=== PATIENT | female | born 1990 | race Caucasian/White ===

== ENCOUNTER 2022-08-21 09:23 | Emergency (ER) | payer MEDICAID, SELFPAY ==
[2022-08-21] VITALS (13 sets, daily range): BP systolic 114–139; BP diastolic 75–92; PULSE 82–100; RESP 22; TEMP 36.2; O2SAT 98–100
--- NOTE | 2022-08-21 09:43 | ED.CHESTPAIN ---
HPI - Chest Pain General Time Seen by Provider: 09:43 Date Seen: 08/21/22 Chief Complaint: Chest Pain Stated Complaint: chest pain and vertigo Time Seen by Provider: 08/21/22 09:41 Source: patient and RN notes reviewed Mode of arrival: ambulatory Limitations: no limitations History of Present Illness HPI narrative: Patient is a 32-year-old female coming in with symptoms of feeling unsteady or wooziness in her head/balance, some substernal chest discomfort. Patient has a history what sounds to be benign positional vertigo with vertiginous symptoms happening with position changes. Last night she notes when she went to bed she thought she had some heartburn, had a burning sensation. When she woke up she went to work, got work about 630 in noted some substernal chest discomfort, it is not sharp, has been there since at the 6:30 a.m., it is currently 10 in the morning right now. She feels nauseated, feels a sense of imbalance. She notes driving to work she was telling her fiance that it just felt like her left ear needed to pop, possible hearing changes. Not currently bothering her at this time, no tinnitus noted. She also notes that she has had some cramps in her right calf. States she has had a history of blood clot in that leg, unknown if superficial or deep but not on any chronic anticoagulants. She is not on any contraception. They do use barrier protection, does not believe she is but understands there is always a chance. MD complaint: chest discomfort Onset (ago): hour(s) Timing of current episode: constant Prior episodes: No Pain location: substernal Related Data On Oral Contraceptives: No Home Medications Medication Instructions Recorded Confirmed No Known Home Medications 08/21/22 08/21/22 Allergies Allergy/AdvReac Type Severity Reaction Status Date / Time No Known Drug Allergies Allergy Verified 08/21/22 09:32 Review of Systems Status of ROS Reports: 6 or more systems reviewed and unremarkable except as noted in History and below Exam Const Vital Signs, click to edit/add: Vital Signs - 24 hr 08/21/22 09:32 08/21/22 09:40 08/21/22 10:33 Temperature 97.2 F L Pulse Rate 89 Pulse Rate [Right Pulse Oximeter] 100 Respiratory Rate 22 Blood Pressure 116/78 Blood Pressure [Right Upper Arm] 139/92 H Pulse Oximetry 98 100 98 Oxygen Delivery Method Room Air 08/21/22 10:34 Temperature Pulse Rate 93 Pulse Rate [Right Pulse Oximeter] Respiratory Rate Blood Pressure Blood Pressure [Right Upper Arm] Pulse Oximetry 99 Oxygen Delivery Method Documenting provider has reviewed patient's vital signs: yes Common normals: no apparent distress, average body habitus, oriented x3, no limitations, healthy appearing and alert General appearance: cooperative, comfortable, well kempt, well developed and anxious [facility] Common normals: normocephalic, head/scalp atraumatic, hearing grossly normal bilaterally, external ears normal, EAC's normal, TM's normal bilaterally, external nose normal, moist oral mucous membranes, oropharynx normal, dentition normal and gingiva normal Head and scalp: normocephalic and atraumatic Face and sinus: normal facial exam Nose: external nose normal External ear: external ears normal External auditory canal: EAC's normal Tympanic membrane: TM's normal bilaterally Eye Common normals: PERRL, EOMs intact bilaterally, conjunctivae normal and no scleral icterus Conjunctiva: conjunctiva(e) normal Pupil: PERRL Neck & C-Spine Common normals: full ROM, no lymphadenopathy, supple, no meningeal signs, no JVD and thyroid normal Thyroid: thyroid normal Lymph Lymphatic: no lymphadenopathy noted Chest Common normals: inspection of chest normal and palpation of chest normal Resp Common normals: normal respiratory effort, no retractions, no use of accessory muscles and clear to auscultation bilaterally Effort & inspection: able to speak in complete sentences Auscultation: clear to auscultation bilaterally Cardio Common normals: no JVD, regular rate, regular rhythm, S1 normal heart sound, S2 normal heart sound, no gallops and no clicks Rate: regular rate Rhythm: regular rhythm Heart sounds: S1 normal and S2 normal Other: Soft, 1 to 2/6 systolic murmur heard both upper sternal borders. GI Common normals: Normal to inspection, nondistended, normoactive bowel sounds present, soft to palpation, non-tender, no hepatosplenomegaly and no masses Palpation: soft and no hepatosplenomegaly Extremity Common normals: no calf tenderness and no pedal edema Neuro Rosalind Coma Scale: document GCS findings Rosalind coma scale eye opening: Spontaneous (4) [place] coma scale verbal response: Orientated (5) [place] coma scale motor response: Obey commands (6) Rosalind coma scale total score: 15 Common normals: oriented x3, CN's II-XII intact bilaterally, moves all extremities, no focal motor deficits, no sensory deficits noted and gait normal Sensorium/orientation: alert Meningeal signs: no meningeal signs Speech: speech normal Psych Appearance: well kempt Course Course Hospital Course: Will give patient IV Ativan in a L of normal saline. Ativan both for nausea and her sense of imbalance. Will obtain troponin, have seen her baseline EKG which is not suggestive of any acute ischemia. Will see where her D-dimer is, obtained portable chest x-ray and full complement of labs. The imbalance feeling certainly could be a labyrinthitis/vestibulitis given her symptoms seem to be coming from possibly the left with changes of hearing earlier this morning. We will see if the Ativan helps. Will get a full complement of labs including electrolytes. She is having chest discomfort, need to consider thromboembolic disease, cardiac manifestations such as myocarditis, ischemia. Reevaluation(s) Time of Reevaluation #1: 11:37 Reevaluation #1: Patient reported to nursing staff that she just found out she was exposed to COVID last week. We will add on a COVID test. Waiting for other labs to come back and then I will be back in with her. Time of Reevaluation #2: 12:45 Reevaluation #2: Reviewed with patient that we were just awaiting the troponin results from lab. She is aware she is COVID positive. This very likely explains her somatic symptoms. We reviewed that her D-dimer is normal, chest x-ray without any evidence COVID pneumonia. There is no evidence of hypoxia, if her troponin is normal, discharge to home for conservative management. Vital Signs Vital signs: Initial Vital Signs Temperature 97.2 F L 08/21/22 09:32 Temperature Source Temporal Artery Scan 08/21/22 09:32 Pulse Rate 100 08/21/22 09:32 Respiratory Rate 22 08/21/22 09:32 Blood Pressure 139/92 H 08/21/22 09:32 Blood Pressure Mean 107 H 08/21/22 09:32 Blood Pressure Position Sitting 08/21/22 09:32 Pulse Oximetry 98 08/21/22 09:32 Oxygen Delivery Method Room Air 08/21/22 09:32 Vital Signs Temperature 97.2 F L 08/21/22 09:32 Pulse Rate 100 08/21/22 09:32 Respiratory Rate 22 08/21/22 09:32 Blood Pressure 139/92 H 08/21/22 09:32 Pulse Oximetry 98 08/21/22 09:32 Oxygen Delivery Method Room Air 08/21/22 09:32 Temperature 97.2 F L 08/21/22 09:32 Pulse Rate 93 08/21/22 10:34 Respiratory Rate 22 08/21/22 09:32 Blood Pressure 116/78 08/21/22 10:33 Pulse Oximetry 99 08/21/22 10:34 Oxygen Delivery Method Room Air 08/21/22 09:32 MDM - Chest Pain Lab Data Attestation: I reviewed the patient's lab results. Labs: Lab Results 08/21/22 08/21/22 Range/Units 10:25 11:37 WBC 4.40 L (4.50-11.00) K/uL RBC 4.44 (4.00-5.20) m/uL Hgb 13.0 (12.0-16.0) gm/dL Hct 39.6 (33.0-51.0) % MCV 89 (80-100) fL MCH 29 (26-34) pg MCHC 33 (32-36) gm/dL RDW Coeff of Mirza 13.2 (11.5-15.5) % Plt Count 308 (140-440) K/uL Neut % (Auto) 65.2 (42.0-72.0) % Lymph % (Auto) 23.2 (20-44) % [place] % (Auto) 10.0 (0.0-11.0) % Eos % (Auto) 0.7 (0.0-7.0) % Baso % (Auto) 0.9 (0.0-3.0) % Neut # (Auto) 2.90 (1.7-7.0) K/uL Lymph # (Auto) 1.00 (0.90-2.90) K/uL [place] # (Auto) 0.40 (0.00-0.90) K/UL Eos # (Auto) 0.00 (0.00-0.50) K/uL Baso # (Auto) 0.00 (0.00-0.30) K/uL Abs Immat Gran (auto) 0.00 (0.00-0.30) K/uL Imm/Tot Granulo (auto) 0.0 % D-Dimer Quant (PE/DVT) < 0.27 (0.00-0.50) ug/ml Sodium 136 (135-149) mmol/L Potassium 3.4 L (3.6-5.1) mmol/L Chloride 101 (96-114) mmol/L Carbon Dioxide 26 (20-32) mmol/L BUN 14 (5-24) mg/dL Creatinine 0.6 (0.5-1.5) mg/dL Estimated GFR 123 ml/min Glucose 100 (60-115) mg/dL Lactate 1.1 (0.5-1.9) mmol/L Calcium 9.6 (8.4-10.6) mg/dL Magnesium 2.1 (1.5-2.6) mg/dL Total Bilirubin 0.6 (0.1-1.5) mg/dL Direct Bilirubin 0.0 (0.0-0.5) mg/dL AST 26 (12-35) U/L ALT 24 (4-35) U/L Alkaline Phosphatase 57 (40-150) U/L Troponin I < 0.01 L (0.01-0.04) ng/mL C-Reactive Protein 0.6 (0.5-1.0) mg/dL NT-Pro-B Natriuret Pep 102 pg/mL Total Protein 8.0 (6.0-8.3) g/dL Albumin 4.7 (3.3-5.0) g/dL Lipase 58 (23-300) U/L HCG, Qual Negative (Negative) SARS-CoV-2 (PCR) POSITIVE SARS-CoV-2 A (Negative) Imaging Data Chest x-ray: Attestation: I have reviewed the pertinent imaging results. My impression: I see no acute cardiopulmonary pathology on my preliminary review. Radiologist's impression: Patient: DANA STONE Facility:?[facility] Patient ID:?[id number] Site Patient ID:?[id number]. Site :?[id number] Study:?XRay Chest PORTABLE-08/21/2022 10:21:48 AM Ordering Physician:?Kandy Rakel Final Report: INDICATION: Chest discomfort. TECHNIQUE: AP portable seated chest x-ray. FINDINGS: Clear lungs. Normal heart size and pulmonary vascularity. Normal included skeleton. IMPRESSION: Negative chest. Dictated by Chad Mari MD @ 08/21/2022 10:26:10 AM (Electronic Signature) ECG Data Attestation: I personally reviewed and interpreted this ECG as follows: (Normal sinus rhythm with sinus arrhythmia, 70 beats per minute. No definitive ischemia. QT corrected 433 milliseconds.) ECG interpretation date: 08/21/22 ECG interpretation time: 09:45 Critical Care Time Critical Care Time Critical Care Time: No Discharge Plan Discharge Clinical Impression: COVID-19, Unsteady gait, Chest discomfort Patient Disposition: Home, Self-Care Condition: Stable Instructions: COVID-19 (Coronavirus Disease 2019) (ED), COVID-19: Slow the Coronavirus Spread (ED) Additional Instructions: Your symptoms are very likely all stemming from an acute COVID infection. Need to isolate per CDC guidelines. I do recommend consideration of an 81 mg aspirin daily anywhere from 4-6 weeks to help prevent thrombotic events stemming from COVID-19 infection. If you have any concerns about worsening, a specific symptom that is concerning to, increased difficulty breathing or shortness of breath, do recommend re-evaluation. Otherwise, can use [id number] medications for symptom management. You may develop fevers, respiratory symptoms with this. Some people will actually have nausea vomiting and diarrhea with COVID. Activity Level: Activity as Tolerated Discharge Diet: Regular Prescriptions: No Action No Known Home Medications Stand Alone Forms: [employer] Info Instructions
--- NOTE | 2022-08-21 09:58 | CRLHL7_ITS ---
For Patients: As a result of the Century Cures Act, medical imaging exams and procedure reports are released immediately into your electronic medical record. You may view this report before your referring provider. If you have questions, please contact your health care provider. INDICATION: Chest discomfort. TECHNIQUE: AP portable seated chest x-ray. FINDINGS: Clear lungs. Normal heart size and pulmonary vascularity. Normal included skeleton. IMPRESSION: Negative chest. Dictated by Chad Mari MD @ 08/21/2022 10:26:10 AM (Electronically Signed)
[2022-08-21] MEDS: 0.9 % SODIUM CHLORIDE 1000 ml 1,000 ML 500 ML IV (10:21)
[2022-08-21] MEDS: LORazepam 2 MG/ML inj 0.5 MG IVP (10:22)
[2022-08-21 10:33] LABS: Lactate* 1.1 mmol/L (0.5-1.9)
[2022-08-21 10:37] LABS: Basophils Percent Auto 0.9 % (0.0-3.0); Eosinophils Percent Auto 0.7 % (0.0-7.0); Hematocrit 39.6 % (33.0-51.0); Lymphocytes Percent Auto 23.2 % (20-44); Mean Corpuscular HGB Conc 33 gm/dL (32-36); Mean Corpuscular Hemoglobin 29 pg (26-34); Mean Corpuscular Volume 89 fL (80-100); Neutrophils Percent Auto 65.2 % (42.0-72.0); Platelet Count* 308 K/uL (140-440); RDW Coefficient of Variation % 13.2 % (11.5-15.5); Red Blood Count 4.44 m/uL (4.00-5.20)
[2022-08-21 10:49] LABS: Slide Review Reflex No
[2022-08-21 10:52] LABS: Albumin* 4.7 g/dL (3.3-5.0); Chloride* 101 mmol/L (96-114)
[2022-08-21 10:53] LABS: Potassium* 3.4 mmol/L (3.6-5.1); Sodium* 136 mmol/L (135-149)
[2022-08-21 10:54] LABS: Lipase* 58 U/L (23-300)
[2022-08-21 10:55] LABS: Creatinine* 0.6 mg/dL (0.5-1.5); Estimated Glomerular Filt Rate 123 ml/min; Magnesium* 2.1 mg/dL (1.5-2.6)
[2022-08-21 10:56] LABS: Alanine Aminotransferase* 24 U/L (4-35); Alkaline Phosphatase* 57 U/L (40-150); Aspartate Amino Transferase* 26 U/L (12-35); Bilirubin Total* 0.6 mg/dL (0.1-1.5); Blood Urea Nitrogen* 14 mg/dL (5-24); Calcium* 9.6 mg/dL (8.4-10.6); Carbon Dioxide* 26 mmol/L (20-32); Glucose* 100 mg/dL (60-115)
[2022-08-21 10:59] LABS: C Reactive Protein* 0.6 mg/dL (0.5-1.0)
[2022-08-21 11:08] LABS: D Dimer Quantitative* < 0.27 ug/ml (0.00-0.50)
[2022-08-21 12:08] LABS: HCG Qualitative Serum* Negative (Negative)
[2022-08-21 12:20] LABS: SARS PCR* POSITIVE SARS-CoV-2 (Negative)
[2022-08-21 13:01] LABS: Troponin I* < 0.01 ng/mL (0.01-0.04)
[2022-08-21 13:02] LABS: NT Pro B Type NatriureticPept* 102 pg/mL
== END 2022-08-21 13:26 | disposition home or self-care (01) ==
PROVIDERS: Emergency Provider Family Medicine
DX: R07.9 Chest pain, unspecified (principal); U07.1 COVID-19; R26.81 Unsteadiness on feet
CPT/HCPCS: 36415; 71045; 80053; 82248; 83605; 83690; 83735; 83880; 84484; 84703; 85025; 85379; 86140; 87635; 93005; 94761; 96374; 99284; 99285; J2060; J7030

== ENCOUNTER 2023-09-12 14:16 | Emergency (ER) | payer MEDICAID, SELFPAY ==
[2023-09-12 14:20] VITALS: BP 146/91; PULSE 83; RESP 18; TEMP 36.9; O2SAT 99; BMI 31.1
--- NOTE | 2023-09-12 14:36 | ED.GENADULT ---
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 She was hospitalized at [facility]. She had an ex attended spectrum beta lactamase bacteria. She finishes the [place] min about 5 days. She has had some looser stools and currently having her period. She sent a C diff toxin in today and that has not resulted yet. She does not feel markedly weak but today presents with some dizziness a little bit of fogginess and wanted to be assessed. Patient denies chest pain denies breathing problem, denies leg swelling or edema or bleeding or clotting issues. She is afebrile today. She has no further kidney or flank pain that was on the left prior to her treatment with ertapenem. Related Data Home Medications ?Medication ?Instructions ?Recorded ?Confirmed No Known Home Medications 08/21/22 08/21/22 Allergies Allergy/AdvReac Type Severity Reaction Status Date / Time No Known Drug Allergies Allergy Verified 08/21/22 09:32 Review of Systems Status of ROS: Reports: 6 or more systems reviewed and unremarkable except as noted in History and below [facility] Social History Second hand tobacco smoke exposure: No How often do you have a drink containing alcohol: never How often do you have six or more drinks on one occasion: Never AUDIT-C Alcohol total score: 0 Non-prescribed substance use: denies use service: No Exam Narrative: Exam Narrative: Objective: Patient's vital signs are slightly elevated terms of systolic and diastolic pressure 146/91, afebrile, O2 sat 99% on room air pulses regular respiratory rate normal HEENT is unremarkable other than dry mucous membranes in the mouth neck is supple chest is clear equal breath sounds no palpable CVA tenderness pulses regular Denies abdominal pain Extremities are no edema Neurologic grossly nonfocal. Const: Vital Signs, click to edit/add: Vital Signs - 24 hr 09/12/23 14:20 Temperature 98.5 F Pulse Rate [Right Pulse Oximeter] 83 Respiratory Rate 18 Blood Pressure [Le ft Upper Arm] 146/91 H Pulse Oximetry 99 Oxygen Delivery Me thod Room Air Course Vital Signs Vital signs: Initial Vital Signs Temperature 98.5 F 09/12/23 14:20 Temperature Source Temporal Artery Scan 09/12/23 14:20 Pulse Rate 83 09/12/23 14:20 Pulse Rhythm Regular 09/12/23 14:20 Pulse Strength 3+ Normal 09/12/23 14:20 Respiratory Rate 18 09/12/23 14:20 Blood Pressure 146/91 H 09/12/23 14:20 Blood Pressure Mean 109 H 09/12/23 14:20 Blood Pressure Position Sitting 09/12/23 14:20 Pulse Oximetry 99 09/12/23 14:20 Oxygen Delivery Method Room Air 09/12/23 14:20 Vital Signs Temperature 98.5 F 09/12/23 14:20 Pulse Rate 83 09/12/23 14:20 Respiratory Rate 18 09/12/23 14:20 Blood Pressure 146/91 H 09/12/23 14:20 Pulse Oximetry 99 09/12/23 14:20 Oxygen Delivery Method Room Air 09/12/23 14:20 Temperature 98.5 F 09/12/23 14:20 Pulse Rate 83 09/12/23 14:20 Respiratory Rate 18 09/12/23 14:20 Blood Pressure 146/91 H 09/12/23 14:20 Pulse Oximetry 99 09/12/23 14:20 Oxygen Delivery Method Room Air 09/12/23 14:20 Medications Administered Medications: Discontinued Medications Generic Name Dose Route Start Last Admin Trade Name Freq PRN Reason Stop Dose Admin Sodium Chloride 1,000 mls @ 6,000 mls/hr 09/12/23 14:45 09/12/23 15:35 0.9 % Sodium Chloride 1000 Ml IV 09/12/23 14:54 Infused .Q10M EVITA Infusion Medical Decision Making MDM Narrative Medical decision making narrative: 33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 C Diff toxin pending. At this point she appears to be mildly dehydrated I think it be reasonable to give her IV fluid 1 L, check a heme 4 basic 7. Would also check a COVID/influenza/RSV test. If her tests are reassuring if she does feels a little better I think we can discharge her to home. She will complete her ertapenem, weight on her C diff report. Follow-up as planned. Addendum 3:08 p.m.: The patient's CBC and Chem profile are unremarkable. I think she would be safe to go home after IV fluid. Await her C diff report. Return as needed. The patient has normal labs, hers COVID test is still pending but she can go home after she gets her IV fluid. Recheck with regular doctor as described above . Lab Data Labs: Lab Results 09/12/23 Range/Units 14:45 WBC 5.92 (4.50-11.00) K/uL RBC 4.06 (4.00-5.20) m/uL Hgb 12.0 (12.0-16.0) gm/dL Hct 36.7 (33.0-51.0) % MCV 90 (80-100) fL MCH 30 (26-34) pg MCHC 33 (32-36) gm/dL RDW Coeff of Mirza 12.5 (11.5-15.5) % Plt Count 349 (140-440) K/uL Neut % (Auto) 67.4 (42.0-72.0) % Lymph % (Auto) 23.0 (20-44) % [place] % (Auto) 6.4 (0.0-11.0) % Eos % (Auto) 2.2 (0.0-7.0) % Baso % (Auto) 0.8 (0.0-3.0) % Neut # (Auto) 3.99 (1.7-7.0) K/uL Lymph # (Auto) 1.36 (0.90-2.90) K/uL [place] # (Auto) 0.40 (0.00-0.90) K/UL Eos # (Auto) 0.13 (0.00-0.50) K/uL Baso # (Auto) 0.05 (0.00-0.30) K/uL Abs Immat Gran (auto) 0.01 (0.00-0.30) K/uL Imm/Tot Granulo (auto) 0.2 % Sodium 139 (135-149) mmol/L Potassium 3.7 (3.6-5.1) mmol/L Chloride 104 (96-114) mmol/L Carbon Dioxide 26 (20-32) mmol/L Anion Gap 9 (7-15) mEq/L BUN 10 (5-24) mg/dL Creatinine 0.6 (0.5-1.5) mg/dL Estimated Creat Clear 116.24 Estimated GFR 122 ml/min Glucose 92 (60-115) mg/dL Calcium 9.4 (8.4-10.6) mg/dL Discharge Plan Discharge Clinical Impression: Dehydration, Dizziness, Pyelonephritis Patient Disposition: Home, Self-Care Condition: Improved Additional Instructions: Rest, fluids, continue your antibiotic treatment, continue home medications. Recommend follow-up with your primary doctor in the 3-5 days. Return to ED sooner problems or concerns Activity Level: Light activity Discharge Diet: Regular Prescriptions: No Action No Known Home Medications Follow Up/Referrals: Provider,Not a Local [Staff Physician] - Stand Alone Forms: [employer] Info Instructions
[2023-09-12 14:51] LABS: Basophils Absolute Auto 0.05 K/uL (0.00-0.30); Basophils Percent Auto 0.8 % (0.0-3.0); Eosinophils Absolute Auto 0.13 K/uL (0.00-0.50); Eosinophils Percent Auto 2.2 % (0.0-7.0); Hematocrit 36.7 % (33.0-51.0); Immature Granulocytes Abs Auto 0.01 K/uL (0.00-0.30); Immature Granulocytes Pct Auto 0.2 %; Lymphocytes Absolute Auto 1.36 K/uL (0.90-2.90); Mean Corpuscular HGB Conc 33 gm/dL (32-36); Mean Corpuscular Hemoglobin 30 pg (26-34); Mean Corpuscular Volume 90 fL (80-100); Monocytes Percent Auto 6.4 % (0.0-11.0); Neutrophils Absolute Auto 3.99 K/uL (1.7-7.0); Neutrophils Percent Auto 67.4 % (42.0-72.0); Platelet Count* 349 K/uL (140-440); RDW Coefficient of Variation % 12.5 % (11.5-15.5); Red Blood Count 4.06 m/uL (4.00-5.20); White Blood Count* 5.92 K/uL (4.50-11.00)
--- OUTSIDE RECORDS SUMMARY | 2023-09-12 14:58 | XMS_ITS | Clinical Summary ---
Author Organization [employer] [facility] [employer] Address [place], [place] [address] Care Team Providers Care Inclinometer Tester Name Role Phone Sarah Snell MD Primary Care Prov ider Allergies No known active allergies Medications Medication Sig Dispensed Refills Start Date End Date Status propranoloL (INDERAL) 10 mg tabletIndication s:Generalized anxiety disorder Take 1 tablet as needed for anxiety, may repeat with a second tablet after 30 minutes. Do not take more than 2 tablets daily. 30 Tablet 4 Active meclizine (ANTIVERT) 12.5 mg tablet Take 25 mg by mouth 2 times daily if needed. Active cyclobenzaprine (FLEXERIL) 5 mg tabletIndication s:Radicular low back pain Take 1 Tablet (5 mg) by mouth 3 times daily if needed for Muscle Spasm. 30 Tablet 4 Active albuterol HFA (PRO-AIR; VENTOLIN; PROVENTIL) 90 mcg/actuation inhalerIndicatio ns:Cough, unspecified type Inhale 1-2 Puffs by mouth every 4 hours if needed for Shortness Of Breath or Wheezing. 1 Each 4 Active fluticasone (50 mcg per actuation) nasal solution (FLONASE)Indicat ions:Acute non-recurrent sinusitis, unspecified location Inhale 2 Sprays to both nostrils once daily. 16 g 4 Active ibuprofen (ADVIL; MOTRIN) 200 mg tablet Take 600 mg by mouth every 6 hours if needed for Pain. Active acetaminophen (TYLENOL EXTRA STRGTH) 500 mg tablet Take 1,000 mg by mouth every 6 hours if needed for Pain. Max acetaminophen dose: 4000mg in 24 hrs. Active alteplase (ACTIVASE; CATHFLO) injectionIndicat ions:Infection due to ESBL-producing Escherichia coli 2 mg by Intra-Catheter route each time if needed for Catheter Clearance. Instill 2 mg into catheter and allow to dwell for 30 minutes. If unable to aspirate blood, allow to dwell for a total of 120 minutes. 4 Active ertapenem (INVANZ) 1 gram solr injectionIndicat ions:Infection due to ESBL-producing Escherichia coli Inject 1,000 mg (1 g) intravenous every 24 hours for 11 days. To Sep 17, 2023 4 09/17/19 24 Active amoxicillin-clav ulanate 875-125 mg tablet (AUGMENTIN)Indic ations:Sinusitis , unspecified chronicity, unspecified location Take 1 Tablet by mouth two times daily with meals for 7 days. 14 Tablet 4 08/25/19 24 benzonatate (TESSALON) 100 mg capsuleIndicatio ns:Cough, unspecified type Take 1 Capsule (100 mg) by mouth 3 times daily if needed for Cough. 21 Capsule 4 09/05/19 24 Discontinued(P harmacist change per medication history (E-cancel not sent)) predniSONE (DELTASONE) 20 mg tabletIndication s:Acute non-recurrent sinusitis, unspecified location Take 2 Tablets (40 mg) by mouth once daily with a meal for 5 doses. 10 Tablet 4 08/28/19 24 Active Problems Problem Noted Date Diagnosed Date ESBL (extended spectrum beta -lactamase) producing bacteria infection 09/07/2023 Pyelonephritis 09/06/2023 Urinary tract infection due to extended-spectrum beta lactamase (ESBL) producing Escherichia coli 09/06/2023 Infection due to ESBL-producing Escherichia coli 09/06/2023 Overview: Pyelonephritis, ESBL (+) E coli Pyelonephritis due to Escherichia coli Infection due to bacteria re sistant to multiple antimicrobial drugs 09/06/2023 Encounter for education 09/06/2023 Overview: Re ESBL Hydronephrosis 09/05/2023 UTI (urinary tract infection) 09/05/2023 Nephrolithiasis 09/05/2023 Palpitations 09/05/2023 Deep vein thrombosis (DVT) of lower extremity Murmur, heart 08/29/2019 Gastroesophageal reflux disease 05/15/2019 Generalized anxiety disorder 05/18/2017 Overview: Stopped lexapro with + . Doing ok at this time. 09/2020 Headache 05/18/2017 Overview: Tylenol is always safe in . NSAIDs are essentially safe till third trimester. Limit caffeine to 300 mg daily. Some patients have relief with acupuncture. Medication options include magnesium 600 mg by mouth daily or as needed, or Vistaril as needed. Labetalol 150 mg twice daily may be considered for prophylaxis. Reglan and other antiemetics are class C. Triptans and ergotamines are contraindicated. Encounters Date Type Department Care Team Description 09/12/2023 7:30 AM CDT Orders Only [facility] [address] [place] [address] Lab, [place] [facility] 09/12/2023 Nurse Triage [facility] [address] [place] [address] Sarah Snell MD Infection 09/11/2023 10:30 AM CDT Office Visit [facility] [address] [place] [address] Angelica Donahue PA Hospital F/U (Was in hospital last week-having a lot of diarrhea from the abx-getting dizzy and nauseated throughout the day-had UTI, kidney infection, stone, ecoli) 09/11/2023 Telephone [facility] [address] [place] [address] Angelica Donahue PA Infusion Therapy (Dressing change needed 09/13 Has a central midline that was inserted at [place]. ) 09/11/2023 Travel 09/10/2023 Patient Outreach [facility] [address] [place] [address] Pia Gonzales, RN Primary RN Care Management; Hospital F/U (LACE 50) 09/05/2023 3:59 PM CDT - 09/07/2023 4:42 PM CDT Hospital Encounter [facility] [address] [place] [address] [facility] Hospitalists Of Matteo Diehl MD Odenbach, Paul Jeffrey, MD Infection due to bacteria resistant to multiple antimicrobial drugs (Primary Dx); Infection due to ESBL-producing Escherichia coli; Medication monitoring encounter Discharge Disposition: Home Self Care 09/04/2023 8:44 PM CDT - 09/05/2023 2:45 PM CDT Emergency [facility] [address] [place] [address] Franci Rodriguez MD Elsenheimer Plutt, Megan Maureen, DO Ureterolithiasis (Primary Dx); Pyelonephritis Discharge Disposition: Critical Access Hospital 09/04/2023 7:57 PM CDT - 09/04/2023 8:43 PM CDT Hospital Encounter [facility] [address] [place] [address] Furlong, Gertrude E, SOLAR ENERGY SPECIALIST Dysuria; Left flank pain 09/04/2023 6:45 PM CDT Office Visit [facility] [address] [place] [address] Deejay, Gertrude E, SOLAR ENERGY SPECIALIST Dysuria; Flank Pain (left) 09/04/2023 2:05 PM CDT Telemedicine [facility] [address] [place] [address] Gisel Porter, SOLAR ENERGY SPECIALIST Urinary Problem; Telehealth (Virtual visit, no vitals taken/) 09/04/2023 Travel 08/23/2023 9:55 AM CDT Telemedicine [facility] [address] [place] [address] Jun Butler, VON Cough 08/18/2023 10:15 AM CDT Ancillary Procedure [facility] [address] [place] [address] 08/18/2023 9:30 AM CDT Office Visit [facility] [address] [place] [address] Gertrude Villalba NP Cough 08/18/2023 Travel 06/21/2023 2:05 PM CDT Office Visit [facility] [address] [place] [address] Abby Kyle PA Throat Problem 06/21/2023 Travel 06/21/2023 Nurse Triage [facility] [address] [place] [address] Pcp, No Throat Problem from Last 3 Months Immunizations Name Administration Dates Next Due Hepatitis B, Unspecified 03/25/2004,10/21/2003,0 07/22/2003 Human Papilloma Virus Vaccin e, Unspecified 11/26/2017(Deferred: Patient Refused) Influenza Virus, Unspecified 11/26/2017(Deferred : Patient Refused) Influenza, IIV4 12/03/2018 MMR 07/22/2003,08/26/1995 Td (Age >=7 Years) 10/21/2003 Tdap 02/09/2021,07/16/2019,03/25/2012 Family History Medical History Relation Name Comments Cancer-breast Maternal Aunt Relation Name Status Comments Maternal Aunt Social History Tobacco Use Types Packs/Day Years Used Date Smoking Tobacco: Never Smokeless Tobacco: Never Tobacco Cessation:Counseling Given: Not Answered Alcohol Use Standard Drinks/Week Comments Yes 0 (1 standard drink = 0.6 oz pur e alcohol) 3 times a week Social Connections Answer Date Recorded Frequency of Communication with Friends and Fami ly 0 09/04/2023 Financial Resource Strain Answer Date R ecorded Difficulty of Paying Living Expenses 3 09/04/2023 Difficulty of Paying Living Expenses Not on file 09/04/2023 Food Insecurity Answer Date Recorded Worried About Running Out of Food in the Last Ye ar 1 09/04/2023 Transportation Needs Answer Date Record ed Lack of Transportation (Medical) 1 09/04/2023 Housing Stability Answer Date Recorded Unable to Pay for Housing in the Last Year 1 09/04/2023 Sex and Gender Information Value Date Recorded Sex Assigned at Not on file Gender Identity Not on file Sexual Orientation Not on file Obstetrics History Last Filed Vital Signs Vital Sign Reading Time Taken Comments Blood Pressure 119/82 09/11/2023 10:36 AM CDT Pulse 67 09/11/2023 10:36 AM CDT Temperature 36.7 ??C (98.1 ??F) 09/11/2023 10:36 AM C DT Respiratory Rate 16 09/07/2023 1:20 AM CDT Oxygen Saturation 99% 09/11/2023 10:36 AM CDT Inhaled Oxygen Concentration - - Weight 82.1 kg (181 lb) 09/11/2023 10:36 AM CDT Height 162.6 cm (5' 4) 09/04/2023 8:47 PM CDT Body Mass Index 31.07 09/04/2023 8:47 PM CDT Plan of Treatment Upcoming Encounters Date Type Department Care Team (Late st Contact Info) Description 10/15/2023 7:15 AM CDT Ancillary Procedure [facility] [address] [place] [address] Health Maintenance Due Date Last Done Comments Depression screening for age 12+ 2003 Pap test for age 21-65 06/22/2012 COVID-19 vaccine series ( season) 2022 Influenza for age 9-49 10/07/2023 12/03/2018 BMI (ht and wt on same day) for age 18+ 05/11/2024 05/12/2023 Tetanus booster 02/09/2031 02/09/2021, 07/06, 03/25/2012, Additional history exists Tdap Completed 02/09/2021, 07/06, 03/25/2012 HIV for age 15-65 Completed 11/02/2022 Hepatitis C screening for age 18-79 Completed 11/02/2022 Pneumococcal series for age 6-64 Aged Out No longer eligible based on patient's age to complete this topic Procedures Procedure Name Priority Date/Time Associated Diagnosis Comments INSERT MIDLINE Routine 09/07/2023 3:25 PM CDT CREATININE Early AM 09/07/2023 7:[address] ABDOMEN PELVIS STONE PROTOCOL WO STONEY 09/06/2023 10:45 AM CDT WHITE BLOOD COUNT Early AM 09/06/2023 7:0 9 AM CDT CREATININE Early AM 09/06/2023 7:09 AM CDT POTASSIUM Early AM 09/06/2023 7:09 AM CDT SODIUM Early AM 09/06/2023 7:09 AM CDT URINE Today 09/05/2023 5:21 PM CDT CREATININE Timed 09/05/2023 10:19 AM CDT WHITE BLOOD COUNT Timed 09/05/2023 10: 19 AM CDT CBC WITH AUTO DIFFERENTIAL STAT 09/04/2023 8:13 PM CDT Dysuria Left flank pain BASIC METABOLIC PANEL STAT 09/04/2023 8:13 PM CDT Dysuria Left flank pain CBC WITH AUTO DIFFERENTIAL STAT 09/04/2023 8:13 PM CDT Dysuria Left flank pain CT ABDOMEN PELVIS STONE PROTOCOL WO STAT 09/04/2023 8:07 PM CDT Dysuria Left flank pain PB SUSCEPTIBILITY AEROBIC PEDRO Routine 09/04/2023 6:57 PM CDT Dysuria URINE CULTURE Add On 09/04/2023 6:57 PM CDT Dysuria URINALYSIS MICROSCOPIC STAT 09/04/2023 6:57 PM CDT Dysuria UA W/ SEDIMENT EXAM REFLEXED PER CRITERIA STAT 09/04/2023 6:57 PM CDT Dysuria XR CHEST 2 VIEWS PA AND LATERAL STAT 08/18/2023 10:16 AM CDT Cough, unspecified type ANTI HIV 1/2 Routine 11/02/2022 2:16 PM CDT Screening for HIV (human immunodeficiency virus) ANTI HCV Routine 11/02/2022 2:16 PM CDT Need for hepatitis C screening test from Last 3 Months or Most Recently Relevant to Health Maintenance Results * INSERT MIDLINE (09/07/2023 3:25 PM CDT) Narrative Tuyet Anderson RN - 09/07/2023 3:25 PM CDT Tuyet Anderson RN ? 09/07/2023 ??3:28 PM Midline Insertion Note 09/07/2023 ?? 3:25 PM Procedure education reviewed: Placement procedure, discussed with: Patient face to face. Patient face to face confirms understanding of procedure. Leather Coater used: No Reason for insertion: ??IV medications Medical/ Surgical/ Allergies History reviewed: ??Yes. Preprocedure Verification: ??Yes 1) Provider Order verified 2) Patient identity verified; 3) side/site/procedure confirmed; 4) relevant information/documentation available, reviewed and properly matched to the patient; 5) For PICC insertions, consent accurate and complete or verified provider has ordered emergent placement; 6) equipment and supplies available Site Marking: ??Yes Site marked if not in continuous attendance with the patient Time Out: ??Yes Time out was conducted just prior to starting procedure to verify the four required elements: 1) patient name and date of 2) confirmation that the correct side/site are marked if applicable, including visualization of the site joanne 3) name of procedure including laterality if applicable, and 4) essential imaging and results are properly labeled and appropriately displayed, if applicable. Site assessment pre-insertion: ??Intact. Local anesthetic used at site: ??Yes, 1% Lidocaine. The following Central Line Insertion Checklist was used: Hand Hygiene: Yes Maximal Barrier Precautions including Sterile Gown, Hat and Mask: Yes Full Body Drape: Yes Site cleansed with: ??Chlorhexidine gluconate prep. MIDLINE/AXILLARY CATHETER 1 LUMEN Right;Basilic Midline/Axillary (Active) 09/07/23 1524 Insertion Location: Right;Basilic Vessel Diameter: .4 Ijhlrrxc-ss-[id number] Ratio (%): ?? Visible Catheter Length (cm): 0 cm Placed/Present Prior to Encounter: ?? Type: Non-Valved Catheter (IA) Size: ?? Size: 3fr Tip Location: Midline/Axillary Midline/Axillary mid-arm circumference (cm): 32 cm Total Length of Catheter (cm): 11 cm Insertion Attempts: ?? Placement Verification: Blood Return Removed Catheter Length (cm): ?? Visible Catheter Length (cm) 0 cm 09/07/23 1500 Arm Circumference (cm) 32 cm 09/07/23 1500 Status Lumen One Capped/Locked;Blood Return 09/07/23 1500 Line Assessment Antimicrobial patch and/or dressing NOT clean/dry/intact 09/07/23 1500 Site Description Ecchymotic;Dry/Flat 09/07/23 1500 Line Intervention New dressing applied and NO hemostatic agent/gauze 09/07/23 1500 Dressing change due date 09/14/2023 09/07/23 1500 Line Copy Worker Name: Bard Line Type: Power Midline Lot Number: [id number] Access Assistance:Modified Seldinger Technique (Micro-Introducer) WITHOUT ??Dermatotomy (skin tang) Post-insertion: ? Able to remove guidewire: ??Smoothly. ? Able to aspirate blood in each lumen: Yes ? Able to flush catheter without resistance in each lumen: ?? Yes Each lumen flushed with: ??20 ml(s) of 0.9% saline, and ??no Heparin. Cap applied to each lumen: ??Yes Line secured with: Stat-Lock ? Hospital dressing policy/procedure followed. Midline standing orders implemented: ??Yes X- ray pending: No, not applicable to midline insertion ? Insertion complications: None Patient tolerated the procedure: ??Yes Midline education reviewed: Given to patient ? Dorian Yanez MD IV ORD * CREATININE (09/07/2023 7:57 AM CDT) Only the most recent of3 resultswithin the time period is included. eGFR >90 >90 mL/min/1.7 3m2 09/07/2023 8:55 AM CDT [facility] Comment:As of 2021, eG FR is calculated by the CKD-EPI creatinine equation without race adjustment. ??eGFR can be influenced by muscle mass, exercise, and diet. ??The reported eGFR is an estimation only and is only applicable if the renal function is stable. CREATININE 0.61 0.50 - 0.90 mg/dL 09/07/2023 8:55 AM CDT [facility] Blood BLOOD SPECIMEN / Unknown Non-Lab Venipuncture / Unknown 09/07/2023 7:57 AM CDT 09/07/2023 8:15 AM CDT Orville Trujillo MD CHEMISTRY [facility] [address] [place] [address], [place] * CT ABDOMEN PELVIS STONE PROTOCOL WO (09/06/2023 10:45 AM CDT) Only the most recent of2 resultswithin the time period is included. Anatomical Region Laterality Modality Abdomen, Pelvis, AORTA, LIVER, SPLEEN Computed Tomography 09/08/2023 7:55 PM CDT Impressions 09/08/2023 7:55 PM CDT 1. Previously reported punctate left ureterovesical junction calculus not visualized on the current examination, possibly passed in the interim. No evidence of obstructive uropathy on the current examination. 2. No new acute abdominal or pelvic abnormality on this noncontrast examination. Please note that all CT scans at this facility use dose modulation, iterative reconstruction, and/or weight-based dosing when appropriate to reduce radiation dose to as low as reasonably achievable. Dictated by Riki Jonas MD @ 09/08/2023 7:55:48 PM (Electronically Signed) Narrative 09/08/2023 7:55 PM CDT For Patients: ??As a result of the 21st Century Cures Act, medical imaging exams and procedure reports are released immediately into your electronic medical record. ??You may view this report before your referring provider. ??If you have questions, please contact your health care provider. INDICATION: Flank pain. TECHNIQUE: CT abdomen and pelvis without contrast. COMPARISON: 09/04/2023. FINDINGS: Lower chest: Mild bibasilar linear atelectasis. Liver: Normal in size and attenuation. Gallbladder and bile ducts: No stones or inflammation. No biliary ductal dilatation. Spleen: Normal in size. Adrenal glands: Normal in size. No nodules. Pancreas: Unremarkable. No mass or inflammation. Kidneys: Normal in size. No stones or hydronephrosis. GI tract: Normal in caliber. No evidence of obstruction. Normal appendix. Lymph nodes: No lymphadenopathy. Vasculature: Abdominal aorta is normal in caliber. Abdominal wall/Omentum/Peritoneum: Tiny fat containing umbilical hernia. No free air or significant free fluid. Pelvis: Unremarkable. Bones: Unremarkable for age. Procedure Note Riki Jonas MD - 09/08/2023 For Patients: As a result of the Cures Act, medical imagingexams and procedure reports are released immediately into your electronicmedical record. You may view this report before your referring provider.If you have questions, please contact your health care provider. INDICATION: Flank pain. TECHNIQUE: CT abdomen and pelvis without contrast. COMPARISON: 09/04/2023. FINDINGS: Lower chest: Mild bibasilar linear atelectasis. Liver: Normal in size and attenuation. Gallbladder and bile ducts: No stones or inflammation. No biliary ductaldilatation. Spleen: Normal in size. Adrenal glands: Normal in size. No nodules. Pancreas: Unremarkable. No mass or inflammation. Kidneys: Normal in size. No stones or hydronephrosis. GI tract: Normal in caliber. No evidence of obstruction. Normal appendix. Lymph nodes: No lymphadenopathy. Vasculature: Abdominal aorta is normal in caliber. Abdominal wall/Omentum/Peritoneum: Tiny fat containing umbilical hernia.No free air or significant free fluid. Pelvis: Unremarkable. Bones: Unremarkable for age. IMPRESSION: 1. Previously reported punctate left ureterovesical junction calculus notvisualized on the current examination, possibly passed in the interim. Noevidence of obstructive uropathy on the current examination. 2. No new acute abdominal or pelvic abnormality on this noncontrastexamination. Please note that all CT scans at this facility use dose modulation,iterative reconstruction, and/or weight-based dosing when appropriate toreduce radiation dose to as low as reasonably achievable. Dictated by Riki Jonas MD @ 09/08/2023 7:55:48 PM (Electronically Signed) Will Roberts MD CT * WHITE BLOOD COUNT (09/06/2023 7:09 AM CDT) Only the most recent of2 resultswithin the time period is included. WHITE BLOOD COUNT 7.6 4.5 - 11.0 thou/cu mm 09/06/2023 7:40 AM CDT [facility] NRBC 0.0 % 09/06/2023 7:40 AM CDT [facility] ABS NRBC 0.0 thou /cu mm 09/06/2023 7:40 AM CDT [facility] Blood BLOOD SPECIMEN / Unknown Venipuncture / Unknown 09/06/2023 7:09 AM CDT 09/06/2023 7:27 AM CDT Matteo Diehl MD HEMATOLOGY Performing Organization Address City/[facility]/ZIP Co de Phone Number [facility] [address] [place] [address], * SODIUM (09/06/2023 7:09 AM CDT) SODIUM 136 136 - 145 mmol/L 09/06/2023 8:40 AM CDT [facility] Blood BLOOD SPECIMEN / Unknown Venipuncture / Unknown 09/06/2023 7:09 AM CDT 09/06/2023 7:28 AM CDT Matteo Diehl MD CHEMISTRY Performing Organization Address City/[facility]/ZIP Co de Phone Number [facility] [address] [place] [address], [place] * POTASSIUM (09/06/2023 7:09 AM CDT) POTASSIUM 4.1 3.5 - 5.1 mmol/L 09/06/2023 8:40 AM CDT [facility] Blood BLOOD SPECIMEN / Unknown Venipuncture / Unknown 09/06/2023 7:09 AM CDT 09/06/2023 7:28 AM CDT Matteo Diehl MD CHEMISTRY [facility] [address] [place] [address], * test, urine TODAY (09/05/2023 5:21 PM CDT) Pathologist [facility] ,URIN E Negative Negative 09/05/2023 5:50 PM CDT [facility] Urine URINE SPECIMEN / Unknown Non-Blood / Unknown 09/05/2023 5:21 PM CDT 09/05/2023 5:31 PM CDT Matteo Diehl MD URINE Performing Organization Address City/[facility] Co de Phone Number [facility] [address] [place] [address], * (ABNORMAL) CBC WITH AUTO DIFFERENTIAL (09/04/2023 8:13 PM CDT) [facility] WHITE BLOOD COUNT 17.1(H) 4.5 - 11.0 thou/cu mm 09/04/2023 8:21 PM CDT [facility] RED BLOOD COUNT 4.05 4.00 - 5.20 mil/cu mm 09/04/2023 8:21 PM T [facility] HEMOGLOBIN 12.4 12.0 - 16.0 g/dL 09/04/2023 8:21 PM T [facility] HEMATOCRIT 37.1 33.0 - 51.0 % 09/04/2023 8:21 PM T [facility] MCV 92 80 - 100 fL 09/04/2023 8:21 PM [facility] MCH 30.6 26.0 - 34.0 pg 09/04/2023 8:21 PM [facility] MCHC 33.4 32.0 - 36.0 g/dL 09/04/2023 8:21 PM [facility] RDW 12.9 11.5 - 15.5 % 09/04/2023 8:21 PM [facility] PLATELET COUNT 350 140 - 440 thou/cu mm 09/04/2023 8:21 PM [facility] MPV 10.6 6.5 - 11.0 fL 09/04/2023 8:21 PM [facility] % NEUT 77.8 % 09/04/2023 8:21 PM [facility] % LYMPH 14.9 % 09/04/2023 8:21 PM [facility] % MONO 6.5 % 09/04/2023 8:21 PM [facility] % EOS 0.6 % 09/04/2023 8:21 PM [facility] % BASO 0.2 % 09/04/2023 8:21 PM [facility] ABSOLUTE NEUTROPHILS 13.3(H) 1.7 - 7.0 thou/cu mm 09/04/2023 8:21 PM [facility] ABSOLUTE LYMPHOCYTES 2.6 0.9 - 2.9 thou/cu mm 09/04/2023 8:21 PM [facility] ABSOLUTE MONOCYTES 1.1(H) <0.9 thou/cu mm 09/04/2023 8:21 PM [facility] ABSOLUTE EOSINOPHILS 0.1 <0.5 thou/cu mm 09/04/2023 8:21 PM [facility] ABSOLUTE BASOPHILS 0.0 <0.3 thou/cu mm 09/04/2023 8:21 PM [facility] Blood BLOOD SPECIMEN / Unknown Venipuncture / Unknown 09/04/2023 8:13 PM CDT 09/04/2023 8:14 PM T Gertrude E Furlong SOLAR ENERGY SPECIALIST HEMATOLOGY [facility] [address] [place] [address] * (ABNORMAL) BASIC METABOLIC PANEL (09/04/2023 8:13 PM CDT) SODIUM 137 136 - 145 mmol/L 09/04/2023 8:36 PM [facility] POTASSIUM 3.8 3.5 - 5.1 mmol/L 09/04/2023 8:36 PM [facility] CHLORIDE 101 98 - 107 mmol/L 09/04/2023 8:36 PM [facility] CO2,TOTAL 25 22 - 29 mmol/L 09/04/2023 8:36 PM [facility] ANION GAP 11 5 - 18 09/04/2023 8:36 PM [facility] GLUCOSE 97 70 - 99 mg/dL 09/04/2023 8:36 PM [facility] CALCIUM 10.1(H) 8.6 - 10.0 mg/dL 09/04/2023 8:36 PM [facility] BUN 9 6 - 20 mg/dL 09/04/2023 8:36 PM [facility] CREATININE 0.67 0.50 - 0.90 mg/dL 09/04/2023 8:36 PM [facility] BUN/CREAT RATIO 13 10 - 20 8:36 PM [facility] eGFR >90 >90 mL/min/1.7 3m2 09/04/2023 8:36 PM [facility] Comment:As of 2021, eG FR is calculated by the CKD-EPI creatinine equation without race adjustment. ??eGFR can be influenced by muscle mass, exercise, and diet. ??The reported eGFR is an estimation only and is only applicable if the renal function is stable. Blood BLOOD SPECIMEN / Unknown Venipuncture / Unknown 09/04/2023 8:13 PM CDT 09/04/2023 8:14 PM CDT Gertrude E Furlong SOLAR ENERGY SPECIALIST CHEMISTRY [facility] [address] [place] [address] * (ABNORMAL) SUSCEPTIBILITY AEROBIC BACTERIA (09/04/2023 6:57 PM CDT) [facility] [facility], AEROBIC BACTERIA SEE COMMENTS( A) 09/12/2023 11:45 AM CDT [facility] Comment: RESULT: FINAL 09/12/2023 1145 SOURCE: URINE, CLEAN CATCH, Requesting provider Dr Ru Yanez. Source = Urine clean catch. Organism ID if applicable= E. coli. Antimicrobials requested= Fosfomycin. SUSCEPTIBILITY, AEROBIC, MARINO ? FINAL ??ESCHERICHIA COLI ?? Organism identified by client. ?Organism ? ESCHERICHIA COLI ??Antibiotic ??MARINO (mcg/mL) ??Interpretation ?Fosfomycin ? <=64 ? S ??S=SUSCEPTIBLE ??I=INTERMEDIATE ??R=RESISTANT ??NS=NONSUSCEPTIBLE ??SDD=SUSCEPTIBLE DOSE DEPENDENT Test Performed by: [facility] [employer] [address] [address] [employer] Stone Fab[employer]ator: Alisha Ely Ph.D.; CLIA# [id number] Urine URINE SPECIMEN / Unknown Add On / Unknown 09/04/2023 6:57 PM CDT 09/07/2023 9:19 AM CDT Gertrude Villalba SOLAR ENERGY SPECIALIST MICROBIOLOGY Performing Organization Address City/[facility]/ZIP Co de Phone Number [facility] [address] [place] [address], * (ABNORMAL) URINALYSIS MICROSCOPIC (09/04/2023 6:57 PM CDT) RBC 11-25(A) 0-2, None Seen /HPF 09/04/2023 7:13 PM CDT [facility] WBC 11-25(A) 0-2, 3-5, None Seen /HPF 09/04/2023 7:13 PM CDT [facility] BACTERIA Few None Seen, Rare, Few Bacteria/ HPF 09/04/2023 7:13 PM CDT [facility] EPITHELIAL CELLS Few None Seen, Few Epi/HPF 09/04/2023 7:13 PM CDT [facility] WHITE CELL CLUMPS Present(A) (none) 09/04/2023 7:13 PM CDT [facility] Urine URINE SPECIMEN / Unknown Non-Blood / Unknown 09/04/2023 6:57 PM CDT 09/04/2023 6:57 PM CDT Gertrude Villalba SOLAR ENERGY SPECIALIST URINE Performing Organization Address City/[facility]/ZIP Co de Phone Number [facility] [address] [place] [phone] * (ABNORMAL) UA W/ SEDIMENT EXAM REFLEXED PER CRITERIA (UA w/ reflex micro if positive) [84962.2] (09/04/2023 6:57 PM CDT) COLOR Yellow Yellow Color 09/04/2023 7:11 PM CDT [facility] CLARITY Clear Clear Clarity 09/04/2023 7:11 PM CDT [facility] SPECIFIC GRAVITY,URINE 1.010 1.010, 1.015, 1.020, 1.025 09/04/2023 7:11 PM T [facility] PH,URINE 6.0 6.0, 7.0, 8.0, 5.5, 6.5, 7.5, 8.5 09/04/2023 7:11 PM T [facility] UROBILINOGEN, QUALITATIVE Normal Normal EU/dl 09/04/2023 7:11 PM [facility] PROTEIN, URINE 100(A) Negative mg/dL 09/04/2023 7:11 PM T [facility] GLUCOSE, URINE Negative Negative mg/dL 09/04/2023 7:11 PM [facility] KETONES,URINE Negative Negative mg/dL 09/04/2023 7:11 PM [facility] BILIRUBIN,URI NE Negative Negative 09/04/2023 7:11 PM [facility] OCCULT BLOOD,URINE Large(A) Negative 09/04/2023 7:11 PM [facility] NITRITE Negative Negative 09/04/2023 7:11 PM [facility] LEUKOCYTE ESTERASE Moderate(A) Negative 09/04/2023 7:11 PM [facility] Urine URINE SPECIMEN / Unknown Non-Blood / Unknown 09/04/2023 6:57 PM CDT 09/04/2023 6:57 PM CDT Gertrude E Furlong SOLAR ENERGY SPECIALIST URINE Performing Organization Address [facility] Co de Phone Number [facility] [address] [place] [address] * XR CHEST 2 VIEWS PA AND LATERAL (08/18/2023 10:16 AM CDT) Anatomical Region Laterality Modality CHEST, THORAX, Lung, HEART Compu melodie Radiography 08/18/2023 10:2 6 AM CDT Narrative 08/18/2023 10:26 AM CDT For Patients: ??As a result of the 21st Century Cures Act, medical imaging exams and procedure reports are released immediately into your electronic medical record. ??You may view this report before your referring provider. ??If you have questions, please contact your health care provider. Indication: Cough. Technique: Two view(s) of the chest. Comparison: 04/05/2023. Findings: Normal cardiomediastinal silhouette and pulmonary vasculature. Lungs are well inflated and clear. No focal consolidation, pleural effusion or pneumothorax. No acute osseous abnormality. Impression: No acute cardiopulmonary abnormality identified. Dictated by Isabelle Lockett MD @ 08/18/2023 10:26:45 AM (Electronically Signed) Procedure Note Isabelle Lockett, DO - 08/18/2023 For Patients: As a result of the Cures Act, medical imagingexams and procedure reports are released immediately into your electronicmedical record. You may view this report before your referring provider.If you have questions, please contact your health care provider. Indication: Cough. Technique: Two view(s) of the chest. Comparison: 04/05/2023. Findings: Normal cardiomediastinal silhouette and pulmonary vasculature. Lungs arewell inflated and clear. No focal consolidation, pleural effusion orpneumothorax. No acute osseous abnormality. Impression: No acute cardiopulmonary abnormality identified. Dictated by Isabelle Lockett MD @ 08/18/2023 10:26:45 AM (Electronically Signed) Gertrude Villalba SOLAR ENERGY SPECIALIST GENERAL IMAGING * ANTI HCV (11/02/2022 2:16 PM CDT) HEPATITIS C ANTIBODY Non-Reacti ve Non-React cristóbal 11/03/2022 12:58 PM CDT [facility] Comment:Please note, per www .CDC.gov: If a patient is known to be at high risk of HCV infection, or is symptomatic, and the physician's suspicion of HCV infection is high, HCV RNA testing is often employed and is of diagnostic value, even after an initial negative anti-HCV test result. Blood BLOOD SPECIMEN / Unknown Venipuncture / Unknown 11/02/2022 2:16 PM CDT 11/02/2022 2:17 PM CDT Polo Kuhn MD SEND OUTS Performing Organization Address City/[facility]/ZIP Co de Phone Number [facility] [address] [place] [phone], * ANTI HIV 1/2 [98247.0] (11/02/2022 2:16 PM CDT) HIV-1/HIV-2 SCREEN Non-Reacti ve Non-Reacti ve 11/03/2022 1:00 PM CDT [facility] [employer] Comment:HIV-1 p24 and HIV-1/ HIV-2 Ab Not Detected. Blood BLOOD SPECIMEN / Unknown Venipuncture / Unknown 11/02/2022 2:16 PM CDT 11/02/2022 2:17 PM CDT Polo Kuhn MD SEND OUTS Performing Organization Address [facility] Co de Phone Number [facility] [address] [place] [phone], from Last 3 Months or Most Recently Relevant to Health Maintenance Additional Health Concerns Infection Onset Date Last Indicated MDRO-GNB Comment:ESBL E. coli +09/04/23 09/04/2023 09/04/2023 Rule-Out C.diff 09/12/2023 09/12/2023 Advance Directives * Full Code (Latest Code Status on File) Date Activated Date Inactivated Comments 09/05/2023 4:29 PM 09/07/2023 6:48 PM Question Answer Comments Code Status Discussion: Reviewed Preferences Care Teams Inclinometer Tester Relationship Specialty Start Date End Date [place] [phone] PCP - General Family Practice 06/21/23
[2023-09-12 14:59] LABS: Slide Review Reflex No
[2023-09-12] MEDS: 0.9 % SODIUM CHLORIDE 1000 ml 1,000 ML 6000 ML IV (15:00)
[2023-09-12 15:03] LABS: Chloride* 104 mmol/L (96-114); Potassium* 3.7 mmol/L (3.6-5.1); Sodium* 139 mmol/L (135-149)
[2023-09-12 15:06] LABS: Anion Gap 9 mEq/L (7-15); Carbon Dioxide* 26 mmol/L (20-32); Creatinine* 0.6 mg/dL (0.5-1.5); Est. Creatinine Clearance* 116.24; Estimated Glomerular Filt Rate 122 ml/min
[2023-09-12 15:07] LABS: Blood Urea Nitrogen* 10 mg/dL (5-24); Calcium* 9.4 mg/dL (8.4-10.6); Glucose* 92 mg/dL (60-115)
[2023-09-12 15:46] LABS: PCR FLU A Negative PCR FLU A (Negative); PCR FLU B Negative PCR FLU B (Negative); PCR RSV Negative PCR RSV (Negative); SARS PCR* Negative SARS-CoV-2 (Negative)
== END 2023-09-12 15:35 | disposition home or self-care (01) ==
LOC: ED 14:56
PROVIDERS: Emergency Provider Family Medicine; PCP Student in an Organized Health Care Education/Training Program
DX: R42 Dizziness and giddiness (principal); N12 Tubulo-interstitial nephritis, not specified as acute or chronic
CPT/HCPCS: 36415; 80048; 85025; 87631; 99284; J7030

== ENCOUNTER 2023-09-18 13:30 | Outpatient (RCR) | payer MEDICAID, SELFPAY ==
[2023-09-14 10:11] VITALS: BP 114/78; PULSE 74; RESP 16; TEMP 36.4; O2SAT 99
== END 2024-03-12 23:59 | disposition home or self-care (01) ==
LOC: CCIC 13:30
PROVIDERS: PCP Student in an Organized Health Care Education/Training Program; Referring Provider Student in an Organized Health Care Education/Training Program; Visit Provider Clinical Nurse Specialist
DX: N12 Tubulo-interstitial nephritis, not specified as acute or chronic (principal); E86.0 Dehydration
CPT/HCPCS: 99211; A4221